=== PATIENT | male | born 1960 | race Caucasian/White ===

== ENCOUNTER 2021-08-19 10:08 | Emergency (ER) | payer MEDICAID ==
[~2021-08-19] VITALS: Ht 175.3 cm; Wt 83.0 kg
[2021-08-19 11:02] LABS: BASOPHILS % (AUTO) 0.4 % (0-1); EOSINOPHILS % (AUTO) 0.6 % (0-6); HEMATOCRIT 38.3 % (42.0-52.0); HEMOGLOBIN 13.1 g/dl (14.0-17.9); LYMPHOCYTES # (AUTO) 1.2 X10'3 (1.1-4.8); LYMPHOCYTES % (AUTO) 16.5 % (21-51); MONOCYTES # (AUTO) 0.7 X10'3 (0-0.9); MONOCYTES % (AUTO) 8.6 % (2-12); NEUTROPHILS # (AUTO) 5.6 X10'3 (1.8-7.7); NEUTROPHILS % (AUTO) 73.9 % (42-75); PLATELET COUNT 243 X10'3 (140-440); RED BLOOD COUNT 4.08 X10'6 (4.70-6.10); RED CELL DISTRIBUTION WIDTH 13.5 % (11.5-14.5); WHITE BLOOD COUNT 7.6 X10'3 (4.5-11.0)
[2021-08-19 11:26] LABS: ALANINE AMINOTRANSFERASE 27 U/L (12-78); ALBUMIN 3.7 G/DL (3.4-5.0); ALBUMIN/GLOBULIN RATIO 0.9 (1.1-1.5); ALKALINE PHOSPHATASE 73 IU/L (46-116); ANION GAP 5 (8-16); ASPARTATE AMINO TRANSFERASE 18 U/L (10-37); BILIRUBIN,TOTAL 0.3 MG/DL (0.1-1.0); BLOOD UREA NITROGEN 22 MG/DL (7-18); BUN/CREATININE RATIO 17.7 (5.4-32.0); CALCIUM 9.3 MG/DL (8.5-10.1); CHLORIDE 101 MMOL/L (99-107); CREATININE 1.24 MG/DL (0.60-1.10); GLUCOSE 105 MG/DL (70-104); POTASSIUM 5.3 MMOL/L (3.5-5.1); SODIUM 132 MMOL/L (135-145); TOTAL CARBON DIOXIDE 25.6 MMOL/L (24-32); TOTAL PROTEIN 7.8 G/DL (6.4-8.2); eGFR 59 ML/MIN
[2021-08-19] MEDS ORDERED: normal saline 1000ML IV soln IVB ONE (12:00)
[2021-08-19] MEDS ORDERED: furosemide 10 MG/1 ML 10ml inj IV ONE (12:00)
[2021-08-19 13:20] VITALS: BP 150/87
== END 2021-08-19 13:22 | disposition home or self-care (01) ==
LOC: ER 10:09
DX: E87.5 Hyperkalemia (principal); E86.0 Dehydration; E78.00 Pure hypercholesterolemia, unspecified; J44.9 Chronic obstructive pulmonary disease, unspecified; F17.210 Nicotine dependence, cigarettes, uncomplicated; Z88.0 Allergy status to penicillin
CPT/HCPCS: 36415; 71045; 80053; 85025; 93005; 96361; 96374; 99285; J1940; J7030

== ENCOUNTER → 2021-09-26 | Emergency (ER) | payer MEDICAID ==
[~2021-09-26] VITALS: Ht 175.3 cm; Wt 84.1 kg
[~2021-09-26] MED LIST: ACET-1025 PO; CYCL-1 PO; LORazepam 2 mg/ml vial IV ONE; acetaminophen 325mg tablet PO ONE; ketorolac trometh. 30mg/ml inj. IV ONE; normal saline 1000ml 1,000 ML IV ONE; orphenadrine citrate 60mg/2ml inj. IM ONE
[2021-09-26 14:36] LABS: BASOPHILS % (AUTO) 0.4 % (0-1); EOSINOPHILS % (AUTO) 0.6 % (0-6); HEMATOCRIT 42.1 % (42.0-52.0); HEMOGLOBIN 14.1 g/dl (14.0-17.9); LYMPHOCYTES # (AUTO) 1.3 X10'3 (1.1-4.8); LYMPHOCYTES % (AUTO) 23.7 % (21-51); MEAN CORPUSCULAR HEMOGLOBIN 31.2 PG (27.0-31.0); MEAN CORPUSCULAR HGB CONC 33.5 g/dL (33.0-36.5); MEAN CORPUSCULAR VOLUME 93.3 FL (78-98); MONOCYTES # (AUTO) 0.6 X10'3 (0-0.9); MONOCYTES % (AUTO) 10.2 % (2-12); NEUTROPHILS # (AUTO) 3.6 X10'3 (1.8-7.7); NEUTROPHILS % (AUTO) 65.1 % (42-75); PLATELET COUNT 265 X10'3 (140-440); RED BLOOD COUNT 4.51 X10'6 (4.70-6.10); RED CELL DISTRIBUTION WIDTH 14.2 % (11.5-14.5); WHITE BLOOD COUNT 5.6 X10'3 (4.5-11.0)
[2021-09-26 14:51] LABS: ALANINE AMINOTRANSFERASE 35 U/L (12-78); ALBUMIN 4.1 G/DL (3.4-5.0); ALKALINE PHOSPHATASE 68 IU/L (46-116); ANION GAP 10 (8-16); ASPARTATE AMINO TRANSFERASE 23 U/L (10-37); BILIRUBIN,TOTAL 0.5 MG/DL (0.1-1.0); BLOOD UREA NITROGEN 20 MG/DL (7-18); BUN/CREATININE RATIO 17.9 (5.4-32.0); CALCIUM 8.9 MG/DL (8.5-10.1); CHLORIDE 105 MMOL/L (99-107); CREATININE 1.12 MG/DL (0.60-1.10); GLUCOSE 100 MG/DL (70-104); MAGNESIUM 2.4 MG/DL (1.5-2.4); POTASSIUM 4.3 MMOL/L (3.5-5.1); SODIUM 142 MMOL/L (135-145); TOTAL CARBON DIOXIDE 26.8 MMOL/L (24-32); TOTAL PROTEIN 8.2 G/DL (6.4-8.2); eGFR 66 ML/MIN
[2021-09-26 16:50] VITALS: BP 146/73
== END | disposition home or self-care (01) ==
LOC: ER 12:56
DX: R25.2 Cramp and spasm (principal); E78.00 Pure hypercholesterolemia, unspecified; J44.9 Chronic obstructive pulmonary disease, unspecified; Z88.0 Allergy status to penicillin; Z79.899 Other long term (current) drug therapy
CPT/HCPCS: 36415; 71045; 80053; 83735; 85025; 96361; 96372; 96374; 96375; 99284; J1885; J2060; J2360; J7030

== ENCOUNTER 2021-10-30 10:51 | Emergency (ER) | payer MEDICAID ==
[~2021-10-30] VITALS: Ht 177.8 cm; Wt 81.1 kg
[~2021-10-30 10:51] MED LIST changes: -ACET-1025 PO; -LORazepam 2 mg/ml vial IV ONE; -acetaminophen 325mg tablet PO ONE; -ketorolac trometh. 30mg/ml inj. IV ONE; -normal saline 1000ml 1,000 ML IV ONE; -orphenadrine citrate 60mg/2ml inj. IM ONE
--- NOTE | 2021-10-30 11:20 | NUR ---
PT YELLING AT STAFF. REFUSING TO COME INTO TX AREA STATING "I DONT WANT TO BE AOUND THESE SICK PEOPLE." PT ATTEMPTING TO WALK INTO ER THROUGH [facility]BULANCE BAY ENTRANCE. PT PACING AND DEMANDING TO ENTER ER. I EXPLAINE THAT DUE TO COVID SYMPTOMS HE MUST WAIT IN RAP AREA. PT WAS SEEN WALKING OUT TO PARKING LOT, NO LONGER IN SIGHT. PT REFUSED VITAL SIGNS TO BE TAKEN. [employer] AND PROVIDER NOTIFIED.
== END 2021-10-30 13:04 | disposition left against medical advice (07) ==
LOC: ER 10:54
DX: J00 Acute nasopharyngitis [common cold] (principal); R09.89 Other specified symptoms and signs involving the circulatory and respiratory systems; R05.9 Cough, unspecified; Z53.21 Procedure and treatment not carried out due to patient leaving prior to being seen by health care provider